=== PATIENT | female | born 1945 | race Caucasian/White ===

== ENCOUNTER 2018-06-22 09:07 | Inpatient (IN) | payer OTHER ==
[~2018-06-22] VITALS: Ht 170.2 cm; Wt 54.0 kg
[~2018-06-22 09:07] MED LIST: ESTR0.9T PO; THYR81.2 PO
[2018-06-22] MEDS ORDERED: ALBUTEROL/IPRATROPIUM 2.5MG/0.5MG, 3 ML NPPB ONE (09:30)
[2018-06-22] MEDS ORDERED: ACETAMINOPHEN 325 MG TABLET PO ONE (09:30)
[2018-06-22] MEDS ORDERED: SODIUM CHLORIDE FLUSH 10ML SYR IVF ONE (09:30)
[2018-06-22] MEDS ORDERED: SODIUM CHLORIDE 0.9% 1,000ML IVBOLUS ONE (09:30)
[2018-06-22] MEDS ORDERED: ESTR0.45 PO (09:34)
[2018-06-22] MEDS ORDERED: ALBUTEROL/IPRATROPIUM 2.5MG/0.5MG, 3 ML ONE (09:44)
[2018-06-22] MEDS ORDERED: ACETAMINOPHEN 325 MG TABLET ONE (09:48)
[2018-06-22 10:03] LABS: MEAN CORPUSCULAR HEMOGLOBIN 31.3 pg (27.0-34.8); MEAN CORPUSCULAR VOLUME 94.6 fL (80-100); MEAN PLATELET VOLUME 7.7 fL (7.4-10.4); PLATELET COUNT 245 x10^3/uL (130-400); RED BLOOD COUNT 4.78 x10^6/uL (3.82-5.3); RED CELL DISTRIBUTION WIDTH 13.9 % (9.6-15.2)
[2018-06-22 10:11] LABS: ALBUMIN 3.2 g/dL (3.4-5.0); ANION GAP 5 mmol/L (5-15); CALCIUM 8.3 mg/dL (8.5-10.1); CHLORIDE 107 mmol/L (98-107); CREATININE 0.73 mg/dL (0.55-1.02)
--- NOTE | 2018-06-22 10:18 | NUR ---
AFTER RECEIVING BREATHING TREATMENT, PT HAD EXTREME TREMORS WITH HR 150. REPEAT EKG. IV FLUIDS STARTED. GIVEN TYLENOL. AT BEDSIDE.
[2018-06-22 10:19] LABS: RAPID INFLUENZA A Negative (Negative); RAPID INFLUENZA B Negative (Negative)
[2018-06-22 10:35] LABS: BASOPHILS # (AUTO) 0.03 x10^3/uL (0-0.1); BASOPHILS % (AUTO) 0 % (0-1); EOSINOPHILS # (AUTO) 0.01 x10^3/uL (0-0.4); EOSINOPHILS % (AUTO) 0 % (1-7); LYMPHOCYTES # (AUTO) 0.77 x10^3/uL (1-3.4); LYMPHOCYTES % (AUTO) 8 % (22-44); MD SCAN; MONOCYTES # (AUTO) 0.65 x10^3/uL (0.2-0.8); MONOCYTES % (AUTO) 6 % (2-9); NEUTROPHILS # (AUTO) 8.76 x10^3/uL (1.8-6.8); NEUTROPHILS % (AUTO) 86 % (42-75)
--- NOTE | 2018-06-22 10:45 | NUR ---
HR 120-130. SHAKY BUT NOT SEVERE. CONTINUE TO MONITOR
[2018-06-22] MEDS ORDERED: CEFTRIAXONE PMX 1GM/50ML 50 ML ONE (11:02)
[2018-06-22] MEDS ORDERED: CEFTRIAXONE PMX 1GM/50ML 50 ML IVPB ONE (11:30)
[2018-06-22] MEDS ORDERED: IBUPROFEN 200 MG TABLET PO ONE (11:30)
--- NOTE | 2018-06-22 11:38 | NUR ---
report to shayla. brandt to be transported on monitor with tech
[2018-06-22] MEDS ORDERED: IBUPROFEN 200 MG TABLET ONE (11:39)
--- NOTE | 2018-06-22 11:45 | NUR ---
HOSPITALIST AT BEDSIDE EXAMINING PT
[2018-06-22] MEDS ORDERED: BISACODYL 10 MG SUPP PR PRN (12:00)
[2018-06-22] MEDS ORDERED: POTASSIUM CHLORIDE 20 MEQ TAB.ER.PRT PO ONE (12:00)
[2018-06-22] MEDS ORDERED: hydrALAzine 20 MG/ML, 1ML IVPush PRN (12:00)
[2018-06-22] MEDS ORDERED: GUAIFENESIN/DM 200-20MG, 10ML UDC PO PRN (12:00)
[2018-06-22] MEDS ORDERED: ENALAPRILAT 1.25 MG/ML, 2ML IVPush PRN (12:00)
[2018-06-22] MEDS ORDERED: DOCUSATE 100 MG CAPSULE PO PRN (12:00)
[2018-06-22] MEDS ORDERED: ACETAMINOPHEN 325 MG TABLET PO PRN (12:00)
[2018-06-22] MEDS ORDERED: POLYETHYLENE GLYCOL 17 GM PACKET PO PRN (12:00)
[2018-06-22] MEDS ORDERED: AZITHROMYCIN 500 MG in SODIUM CHLORIDE 0.9% 250 ML IVPB ONE (12:00)
[2018-06-22 12:22] VITALS: BP 93/60
[2018-06-22 12:22] LABS: FREE T4 (FREE THYROXINE) 0.97 ng/dL (0.76-1.46); THYROID STIMULATING HORMONE 1.03 mIU/L (0.358-3.740)
[2018-06-22] MEDS: HEPARIN 5,000 UNITS/ML, 1ML SQ SCH ×2 (12:58→20:12)
[2018-06-22] MEDS: SODIUM CHLORIDE 0.9% 1,000 ML IV SCH ×2 (13:05→20:12)
[2018-06-22 13:19] LABS: MICROSCOPIC NOT IND
[2018-06-22 13:25] LABS: CULTURE INDICATED? NO
[2018-06-22 19:40] VITALS: BP 113/72
[2018-06-22] MEDS: DOXYCYCLINE 100MG TABLET PO SCH (20:12)
[2018-06-23 01:21] VITALS: BP 118/72
[2018-06-23] MEDS: SODIUM CHLORIDE 0.9% 1,000 ML IV SCH ×4 (03:18→22:28)
[2018-06-23] MEDS: HEPARIN 5,000 UNITS/ML, 1ML SQ SCH ×3 (03:59→20:38)
[2018-06-23 05:06] LABS: BASOPHILS # (AUTO) 0.01 x10^3/uL (0-0.1); BASOPHILS % (AUTO) 0 % (0-1); EOSINOPHILS # (AUTO) 0.02 x10^3/uL (0-0.4); EOSINOPHILS % (AUTO) 0 % (1-7); LYMPHOCYTES # (AUTO) 1.32 x10^3/uL (1-3.4); LYMPHOCYTES % (AUTO) 14 % (22-44); MD NO; MEAN CORPUSCULAR HEMOGLOBIN 31.5 pg (27.0-34.8); MEAN CORPUSCULAR HGB CONC 33.3 g/dL (32.4-35.8); MEAN CORPUSCULAR VOLUME 94.4 fL (80-100); MEAN PLATELET VOLUME 7.7 fL (7.4-10.4); MONOCYTES # (AUTO) 0.62 x10^3/uL (0.2-0.8); MONOCYTES % (AUTO) 6 % (2-9); NEUTROPHILS # (AUTO) 7.58 x10^3/uL (1.8-6.8); NEUTROPHILS % (AUTO) 79 % (42-75); PLATELET COUNT 203 x10^3/uL (130-400); RED BLOOD COUNT 3.84 x10^6/uL (3.82-5.3); RED CELL DISTRIBUTION WIDTH 13.6 % (9.6-15.2)
[2018-06-23 05:07] LABS: ALBUMIN 2.4 g/dL (3.4-5.0); ANION GAP 7 mmol/L (5-15); CALCIUM 7.5 mg/dL (8.5-10.1); CHLORIDE 114 mmol/L (98-107)
[2018-06-23 05:14] LABS: ALANINE AMINOTRANSFERASE 31 U/L (12-78); ALKALINE PHOSPHATASE 71 U/L (45-117); BILIRUBIN,TOTAL 0.4 mg/dL (0.2-1.0); CHOLESTEROL, TOTAL 137 mg/dL (140-239); CREATININE 0.48 mg/dL (0.55-1.02); HDL CHOL % 50 % (28-40); HDL CHOLESTEROL (DIRECT) 69 mg/dL (40-60); LDL CHOLESTEROL,CALCULATED 46 mg/dL (54-169); LDL/HDL RATIO 0.7 (0.5-3.0); TOTAL PROTEIN 5.7 g/dL (6.4-8.2); TRIGLYCERIDES 108 mg/dL (50-200); VLDL CHOLESTEROL 22 mg/dL (0-25)
[2018-06-23 07:59] VITALS: BP 111/75
[2018-06-23] MEDS: DOXYCYCLINE 100MG TABLET PO SCH ×2 (08:25→20:38)
[2018-06-23] MEDS: CEFTRIAXONE PMX 1GM/50ML 50 ML IV SCH (10:47)
[2018-06-23 13:47] VITALS: BP 114/74
[2018-06-23 19:35] VITALS: BP 107/69
[2018-06-24 02:45] VITALS: BP 130/80
[2018-06-24] MEDS: HEPARIN 5,000 UNITS/ML, 1ML SQ SCH ×3 (04:39→20:09)
[2018-06-24] MEDS: SODIUM CHLORIDE 0.9% 1,000 ML IV SCH ×2 (04:40→13:26)
[2018-06-24 05:57] LABS: ALBUMIN 2.2 g/dL (3.4-5.0); ANION GAP 7 mmol/L (5-15); CALCIUM 7.7 mg/dL (8.5-10.1); CHLORIDE 113 mmol/L (98-107); CREATININE 0.47 mg/dL (0.55-1.02)
[2018-06-24 07:16] VITALS: BP 137/83
[2018-06-24] MEDS: DOXYCYCLINE 100MG TABLET PO SCH ×2 (08:18→20:09)
[2018-06-24] MEDS: CEFTRIAXONE PMX 1GM/50ML 50 ML IV SCH (10:38)
[2018-06-24 11:40] LABS: OCCULT BLOOD NEGATIVE (NEGATIVE)
[2018-06-24 15:50] VITALS: BP 135/84
[2018-06-25] MEDS: SODIUM CHLORIDE 0.9% 1,000 ML IV SCH (03:03)
[2018-06-25 05:42] LABS: ALBUMIN 2.5 g/dL (3.4-5.0); ANION GAP 9 mmol/L (5-15); CALCIUM 8.6 mg/dL (8.5-10.1); CHLORIDE 112 mmol/L (98-107); CREATININE 0.55 mg/dL (0.55-1.02)
[2018-06-25] MEDS: HEPARIN 5,000 UNITS/ML, 1ML SQ SCH (06:16)
[2018-06-25 06:59] VITALS: BP 125/79
[2018-06-25] MEDS: DOXYCYCLINE 100MG TABLET PO SCH (09:02)
[2018-06-25] MEDS ORDERED: L.AC1CAP6 PO (10:41)
[2018-06-25] MEDS ORDERED: CEFD300C37 PO (10:41)
[2018-06-25] MEDS ORDERED: DOXY100T10 PO (10:41)
[2018-06-25] MEDS: CEFTRIAXONE PMX 1GM/50ML 50 ML IV SCH (10:57)
== END 2018-06-25 11:53 | disposition home or self-care (01) | DRG 871 ==
LOC: ED 11:12 → EDIP 12:20 → 4WST 12:35 → DCLOUNGE 06-25 11:40
PROVIDERS: ADMIT Hospitalist; ATTEND Hospitalist
DX: A41.9 Sepsis, unspecified organism (principal); J18.1 Lobar pneumonia, unspecified organism; F41.9 Anxiety disorder, unspecified; I45.81 Long QT syndrome; K21.9 Gastro-esophageal reflux disease without esophagitis; Z86.73 Personal history of transient ischemic attack (TIA), and cerebral infarction without residual deficits; Z90.710 Acquired absence of both cervix and uterus; Z87.81 Personal history of (healed) traumatic fracture; Z90.49 Acquired absence of other specified parts of digestive tract; Z98.41 Cataract extraction status, right eye; Z98.42 Cataract extraction status, left eye; Z82.49 Family history of ischemic heart disease and other diseases of the circulatory system; Z88.8 Allergy status to other drugs, medicaments and biological substances; Z79.899 Other long term (current) drug therapy
CPT/HCPCS: 36415; 84145; 87400; 96361; 99285; J7620; 71046; 80048; 80053; 80061; 81003; 82040; 82272; 83605; 83735; 84439; 84443; 85025; 87040; 87070; 87205; 93005; 94640; 96374; 96375; G0378; J0456; J0696; J1644; J7030; J7050

== ENCOUNTER → 2020-10-10 | Outpatient (CLI) | payer OTHER ==
[~2020-10-10] MED LIST changes: +CEFD300C37 PO; +DOXY100T23 PO; +ESTR0.45 PO; +L.AC1CAP6 PO
== END | disposition home or self-care (01) ==
LOC: CFH 10:56
PROVIDERS: ATTEND Obstetrics & Gynecology
DX: N60.02 Solitary cyst of left breast (principal); R92.1 Mammographic calcification found on diagnostic imaging of breast; N63.25 Unspecified lump in the left breast, overlapping quadrants
CPT/HCPCS: 76642; 77061; 77065; G0279

== ENCOUNTER 2020-11-09 07:58 | Outpatient (CLI) | payer OTHER ==
[2020-11-09] MEDS ORDERED: SODIUM BICARBONATE 4.2%, 5ML ONE (10:44)
[2020-11-09] MEDS ORDERED: LIDOCAINE 1%, 20ML ONE (10:44)
[2020-11-09] MEDS ORDERED: LIDOCAINE 1%-EPI 1:100K, 20ML ONE (10:44)
== END 2020-11-09 23:59 | disposition home or self-care (01) ==
LOC: CFH 07:58
PROVIDERS: ATTEND Obstetrics & Gynecology
DX: N63.21 Unspecified lump in the left breast, upper outer quadrant (principal); D05.12 Intraductal carcinoma in situ of left breast
CPT/HCPCS: 19081; 77065; 88305; 88341; 88342; 88360; J3490

== ENCOUNTER 2020-12-15 12:52 | Day surgery (SDC) | payer OTHER ==
[2020-12-12 14:56] LABS: BASOPHILS % (AUTO) 1 % (0-1); EOSINOPHILS % (AUTO) 3 % (1-7); LYMPHOCYTES % (AUTO) 31 % (22-44); MEAN CORPUSCULAR HEMOGLOBIN 32.3 pg (27.0-34.8); MEAN CORPUSCULAR HGB CONC 33.7 g/dL (32.4-35.8); MEAN PLATELET VOLUME 7.2 fL (7.4-10.4); MONOCYTES % (AUTO) 9 % (2-9); NEUTROPHILS % (AUTO) 57 % (42-75); PLATELET COUNT 359 x10^3/uL (130-400); RED CELL DISTRIBUTION WIDTH 13.3 % (9.6-15.2)
[~2020-12-15] VITALS: Ht 167.6 cm; Wt 54.2 kg
[~2020-12-15 12:52] MED LIST changes: +ASCO500T8 PO; +BIOT25005 PO; +CALC-39 PO; +CHOL10003 PO; +GLUC1TAB27 PO; +LEVO100T5 PO; +LOVA20TA2 PO; +MAGN500C9 PO; +MULT-717 PO; +UBID50CA3 PO; +[UNRECOGNIZED DRUG - OTHER] PO
[2020-12-15] MEDS ORDERED: CHLORHEXIDINE 15 ML UDC ONE (13:07)
[2020-12-15 13:17] VITALS: BP 119/75
[2020-12-15] MEDS ORDERED: CYCL1DRO EACHEYE (13:27)
[2020-12-15] MEDS ORDERED: LACTATED RINGERS 1,000 ML IV SCH (13:30)
[2020-12-15] MEDS ORDERED: CHLORHEXIDINE 15 ML UDC PO ONE (13:30)
[2020-12-15] MEDS ORDERED: ACETAMINOPHEN 325 MG TABLET PO PRN (15:00)
[2020-12-15] MEDS ORDERED: PROMETHAZINE 25 MG/ML, 1ML IVPush PRN (15:00)
[2020-12-15] MEDS ORDERED: LABETALOL 5MG/ML, 20ML IV PRN (15:00)
[2020-12-15] MEDS ORDERED: HYDROmorphone 1 MG/ML, 1ML INJ IVPush PRN (15:00)
[2020-12-15] MEDS ORDERED: ONDANSETRON 2MG/ML, 2ML IVPush PRN (15:00)
[2020-12-15] MEDS ORDERED: hydrALAzine 20 MG/ML, 1ML IV PRN (15:00)
[2020-12-15] MEDS ORDERED: MIDAZOLAM 1 MG/ML, 2ML ONE (15:08)
[2020-12-15] MEDS ORDERED: FENTANYL PF 250 MCG/5ML ONE (15:08)
[2020-12-15] MEDS ORDERED: BUPIVACAINE/PF 0.5% ONE (16:17)
[2020-12-15] MEDS ORDERED: EPINEPHRINE 1 MG/ML, 1ML ONE (16:18)
[2020-12-15] MEDS ORDERED: CEFAZOLIN 1,000 MG ONE ×2 (16:18→16:39)
[2020-12-15] MEDS ORDERED: GENTAMICIN 80 MG/2 ML ONE (16:18)
[2020-12-15] MEDS ORDERED: VANCOMYCIN 1,000 MG ONE (16:18)
[2020-12-15] MEDS ORDERED: DEXAMETHASONE 4 MG/ML, 5ML ONE (16:40)
[2020-12-15] MEDS ORDERED: PROPOFOL 10 MG/ML, 20ML ONE (16:54)
[2020-12-15] MEDS ORDERED: METOPROLOL 1 MG/ML, 5ML ONE (16:54)
[2020-12-15] MEDS ORDERED: ONDANSETRON 2MG/ML, 2ML ONE (17:28)
[2020-12-15] MEDS ORDERED: EPHEDRINE 50 MG/ML, 1ML ONE (17:55)
[2020-12-15] MEDS: FENTANYL PF 100 MCG/2ML IV PRN ×3 (18:57→19:34)
[2020-12-15] MEDS: OXYcodone 5 MG/5 ML ORAL.SOL UDC PO PRN ×2 (18:57→20:10)
[2020-12-15] MEDS ORDERED: MEPERIDINE/PF 25MG/0.5ML IVPush PRN (19:00)
== END 2020-12-15 21:20 | disposition home or self-care (01) ==
LOC: OUT 12:52
PROVIDERS: ATTEND Surgery
DX: D05.12 Intraductal carcinoma in situ of left breast (principal); E78.5 Hyperlipidemia, unspecified; E03.9 Hypothyroidism, unspecified; F12.90 Cannabis use, unspecified, uncomplicated; Z17.0 Estrogen receptor positive status [ER+]; Z20.822 Contact with and (suspected) exposure to COVID-19; Z79.890 Hormone replacement therapy; Z79.899 Other long term (current) drug therapy; Z85.828 Personal history of other malignant neoplasm of skin; Z88.8 Allergy status to other drugs, medicaments and biological substances
CPT/HCPCS: 15777; 19303; 19357; 36415; 38525; 76098; 85025; 88307; 88333; 93005; C1729; C1762; C1789; J0171; J0690; J1100; J1580; J2175; J2250; J2405; J2704; J3010; J3370; J7120; U0003; U0005